=== PATIENT | female | born 1965 | race Caucasian/White ===

== ENCOUNTER 2017-04-16 10:03 | Outpatient (CLI) | payer BC | END 2017-04-16 10:04 | disposition home or self-care (01) | LOC: BICMAMMO 10:03 | PROVIDERS: ATTEND Obstetrics & Gynecology | DX: Z12.31 Encounter for screening mammogram for malignant neoplasm of breast (principal); N63.20 Unspecified lump in the left breast, unspecified quadrant | CPT/HCPCS: 77063; 77067 ==

== ENCOUNTER 2017-04-23 09:18 | Outpatient (CLI) | payer BC | END 2017-04-23 09:19 | disposition home or self-care (01) | LOC: BICULT 09:18 | PROVIDERS: ATTEND Obstetrics & Gynecology | DX: R92.8 Other abnormal and inconclusive findings on diagnostic imaging of breast (principal) | CPT/HCPCS: 76942; G0206-LT ==

== ENCOUNTER → 2017-05-03 | Day surgery (SDC) | payer BC | LOC: SDC 08:13 | PROVIDERS: ATTEND Internal Medicine Gastroenterology | DX: R05 Cough (principal); K75.81 Nonalcoholic steatohepatitis (NASH) | CPT/HCPCS: 91034 ==

== ENCOUNTER 2018-04-25 09:58 | Outpatient (CLI) | payer BC ==
--- NOTE | 2018-04-26 14:59 | MMO ---
FILMS COMPARED: The present examination has been compared to prior imaging studies performed at [facility] on 03/21/2015, 03/23/2016 and 04/16/2017, and at [facility] on 12/01/2010 and 11/24/2011. MAMMOGRAM FINDINGS: The breasts are heterogeneously dense, which could obscure a lesion on mammography. There is a stable mass with circumscribed margins seen in the left breast. The mass was shown to be a cyst on prior ultrasound and FNA. There are no suspicious masses, calcifications or areas of architectural distortion. IMPRESSION: STABLE MASS IN THE LEFT BREAST IS BENIGN. A ROUTINE FOLLOW-UP MAMMOGRAM IN 1 YEAR IS RECOMMENDED. ACR BI-RADS Category 2 - Benign finding
== END 2018-04-25 09:59 | disposition home or self-care (01) ==
LOC: BICMAMMO 09:58
PROVIDERS: ATTEND Obstetrics & Gynecology
DX: Z12.31 Encounter for screening mammogram for malignant neoplasm of breast (principal); N63.20 Unspecified lump in the left breast, unspecified quadrant
CPT/HCPCS: 77063; 77067